=== PATIENT | male | born 1990 | race Caucasian/White ===

== ENCOUNTER 2024-09-17 17:27 | Emergency (ER) | payer OTHER ==
[~2024-09-17] VITALS: Ht 165.1 cm; Wt 78.9 kg
[2024-09-17 17:46] VITALS: PULSE 84; RESP 20; TEMP 98.3
[2024-09-17 18:20] VITALS: BP 141/77; PULSE 84; RESP 18; O2SAT 100
== END 2024-09-17 18:20 | disposition home or self-care (01) ==
LOC: FSED 17:32
DX: F41.9 Anxiety disorder, unspecified (principal); I10 Essential (primary) hypertension; F90.9 Attention-deficit hyperactivity disorder, unspecified type
CPT/HCPCS: 99282